=== PATIENT | female | born 1965 | race Caucasian/White ===

== ENCOUNTER 2021-09-08 21:17 | Emergency (ER) | payer BC, MEDICARE, MEDICAID, SELFPAY ==
[2021-09-08 21:28] VITALS: BP 124/93; PULSE 59; RESP 18; TEMP 36.6; BMI 18.0
--- NOTE | 2021-09-08 22:10 | ED.GENADULT ---
HPI - General Adult General Time Seen by Provider: 22:09 <Kamran Jarvis MD - Last Filed: 09/09/21 00:15> Date Seen: 09/08/21 <Kamran Jarvis MD - Last Filed: 09/09/21 00:15> Chief complaint: Syncope/Fainted <Kamran Jarvis MD - Last Filed: 09/09/21 00:15> Stated complaint: Fainting spells <Kamran Jarvis MD - Last Filed: 09/09/21 00:15> Time Seen by Provider: 09/08/21 21:44 <Kamran Jarvis MD - Last Filed: 09/09/21 00:15> Source: patient <Kamran Jarvis MD - Last Filed: 09/09/21 00:15> Mode of arrival: ambulatory <Kamran Jarvis MD - Last Filed: 09/09/21 00:15> Limitations: no limitations <Kamran Jarvis MD - Last Filed: 09/09/21 00:15> History of Present Illness HPI narrative: 48-year-old female with complex medical history of fibromuscular dysplasia, history of acute CVA and various arterial dissections, currently on blood thinners, who presents with multiple syncopal episodes in the last week or so. She describes pain in the back of her neck going to her head that is intermittent and then says she passes out. She has nausea without vomiting. She denies any chest pain or palpitations accompanying this although she does have recurrent chest pain for which she takes nitroglycerin. This is been chronic and stable. She denies abdominal pain, urinary symptoms. She denies numbness or tingling the arms or legs. Review of chart shows that she has a history of chronic benzodiazepine use concern for opioid misuse as well. <Kamran Jarvis MD - Last Filed: 09/09/21 00:15> Related Data Home medications: Home Medications Medication Instructions Recorded Confirmed apixaban 2.5 mg tablet (Eliquis) mg 09/08/21 apixaban 5 mg tablet (Eliquis) 5 mg 09/08/21 clonazepam 2 mg tablet mg 09/08/21 desvenlafaxine succinate 25 mg mg PO 09/08/21 tablet,extended release 24 hr ferrous sulfate 325 mg (65 mg mg 09/08/21 iron) tablet (FeroSul) nitroglycerin 0.4 mg sublingual mg 09/08/21 tablet omeprazole 40 mg capsule,delayed mg 09/08/21 release ondansetron 8 mg disintegrating mg 09/08/21 tablet oxycodone 5 mg tablet mg 09/08/21 oxycodone-acetaminophen 5 mg-325 tab 09/08/21 mg tablet paroxetine HCl 40 mg tablet mg PO 09/08/21 potassium chloride 10 mEq meq 09/08/21 capsule,extended release sennosides 8.6 mg-docusate sodium PO 09/08/21 50 mg tablet (Stimulant Laxative Plus) trazodone 50 mg tablet mg 09/08/21 <Kamran Jarvis MD - Last Filed: 09/09/21 00:15> Allergies/adverse reactions: Allergies Allergy/AdvReac Type Severity Reaction Status Date / Time Iodinated Contrast Media Allergy Intermediate Rash Verified 09/08/21 21:38 <Kamran Jarvis MD - Last Filed: 09/09/21 00:15> Review of Systems Status of ROS: Reports: 10 or more systems reviewed and unremarkable except as noted in History and below <Kamran Jarvis MD - Last Filed: 09/09/21 00:15> [facility] Medical History: Medical History (Updated 09/09/21 @ 00:04 by Kamran Jarvis MD) Cancer CVA (cerebral vascular accident) GERD (gastroesophageal reflux disease) Hyperlipidemia Hypertension <Kamran Jarvis MD - Last Filed: 09/09/21 00:15> Surgical History: Surgical History (Updated 09/08/21 @ 21:39 by Stacey Rojo RN) History of cholecystectomy <Kamran Jarvis MD - Last Filed: 09/09/21 00:15> Social History: Social History Smoking Status: Former smoker Do you use any of these nicotine containing products: None Second hand tobacco smoke exposure: No How often do you have a drink containing alcohol: never How often do you have six or more drinks on one occasion: Never AUDIT-C Alcohol total score: 0 Non-prescribed substance use: marijuana (any form) service: No <Kamran Jarvis MD - Last Filed: 09/09/21 00:15> Exam Const: Vital Signs, click to edit/add: Vital Signs - 24 hr 09/08/21 21:28 Temperature 97.8 F Pulse Rate [Pulse Oximeter] 59 L Respiratory Rate 18 Blood Pressure [Le ft Upper Arm] 124/93 H <Kamran Jarvis MD - Last Filed: 09/09/21 00:15> Vital Signs, click to edit/add: Vital Signs - 24 hr 09/08/21 21:28 Temperature 97.8 F Pulse Rate [Pulse Oximeter] 59 L Respiratory Rate 18 Blood Pressure [Le ft Upper Arm] 124/93 H <Wu Grossman MD - Last Filed: 09/09/21 03:17> Documenting provider has reviewed patient's vital signs: yes <Kamran Jarvis MD - Last Filed: 09/09/21 00:15> Common normals: no apparent distress, oriented x3, alert and well nourished <Kamran Jarvis MD - Last Filed: 09/09/21 00:15> HENMT: Common normals: normocephalic, head/scalp atraumatic, external ears normal and external nose normal <Kamran Jarvis MD - Last Filed: 09/09/21 00:15> Head and scalp: normocephalic and atraumatic <Kamran Jarvis MD - Last Filed: 09/09/21 00:15> Nose: external nose normal <Kamran Jarvis MD - Last Filed: 09/09/21 00:15> External ear: external ears normal <Kamran Jarvis MD - Last Filed: 09/09/21 00:15> Eye: Common normals: PERRL and conjunctivae normal <Kamran Jarvis MD - Last Filed: 09/09/21 00:15> Conjunctiva: conjunctiva(e) normal <Kamran Jarvis MD - Last Filed: 09/09/21 00:15> Pupil: PERRL <Kamran Jarvis MD - Last Filed: 09/09/21 00:15> Neck & C-Spine: Common normals: full ROM, no lymphadenopathy and supple <Kamran Jarvis MD - Last Filed: 09/09/21 00:15> Chest: Common normals: palpation of chest normal <MD Sejal Garcia Last Filed: 09/09/21 00:15> Resp: Common normals: normal respiratory effort and clear to auscultation bilaterally <MD Sejal Garcia Last Filed: 09/09/21 00:15> Auscultation: clear to auscultation bilaterally <MD Sejal Garcia Last Filed: 09/09/21 00:15> Cardio: Common normals: regular rate, regular rhythm and no murmurs <MD Sejal Garcia Last Filed: 09/09/21 00:15> Rate: regular rate <MD Sejal Garcia Last Filed: 09/09/21 00:15> Rhythm: regular rhythm <MD Sejal Garcia Last Filed: 09/09/21 00:15> GI: Common normals: Normal to inspection, nondistended, normoactive bowel sounds present, soft to palpation and non-tender <MD Sejal Garcia Last Filed: 09/09/21 00:15> Palpation: soft <MD Sejal Garcia Last Filed: 09/09/21 00:15> : Common normals: no CVA tenderness <MD Sejal Garcia Last Filed: 09/09/21 00:15> Bladder/kidney exam: no CVA tenderness <MD Sejal Garcia Last Filed: 09/09/21 00:15> Back & Pelvis: Common normals: no CVA tenderness and thoracic and lumbar spine normal to inspection <MD Sejal Garcia Last Filed: 09/09/21 00:15> Extremity: Common normals: normal to inspection, full ROM and no pedal edema <MD Sejal Garcia Last Filed: 09/09/21 00:15> Neuro: Common normals: oriented x3, CN's II-XII intact bilaterally and no focal motor deficits <MD Sejal Garcia Last Filed: 09/09/21 00:15> Sensorium/orientation: alert <MD eSjal Garcia Last Filed: 09/09/21 00:15> Psych: Common normals: mental status grossly normal <MD Sejal Garcia Last Filed: 09/09/21 00:15> Skin: Common normals: no rashes or lesions noted <Kamran Jarvis MD - Last Filed: 09/09/21 00:15> General skin exam: no rashes or lesions noted <Kamran Jarvis MD - Last Filed: 09/09/21 00:15> Course Reevaluation(s) Reevaluation #1: Patient remains finally stable in the emergency department other than borderline sinus bradycardia. Labs are reassuring including normal troponin, normal electrolytes. EKG does not demonstrate any acute ischemic changes. Patient is stable for discharge if head CT does not demonstrate any acute findings. <Kamran Jarvis MD - Last Filed: 09/09/21 00:15> Time: 23:16 <Kamran Jarvis MD - Last Filed: 09/09/21 00:15> Reevaluation #2: I reviewed patient's prior records from the [facility]. This shows that patient has been seen from [facility] on August 30 from where she she had unremarkable workup and left against medical advice after being offered admission. She was subsequently seen at [facility] emergency department on August 31 at which time she had cardiac evaluation as well as CT scan of the chest, abdomen, and pelvis again with negative evaluation and discharge home. On September 06 she presented to [facility] where she left after triaged. Again on September 06, she then presented to [facility] where she she again left after triage. Most recently, she was already seen today at [facility] Emergency [facility]. She had a full and extensive evaluation for syncope, including MRI/MRA of the brain and [place] all of which was negative and was discharged at 7:15 p.m., presenting to our emergency department at approximately 9:15 p.m. based on multiple recent negative evaluations for her symptoms as well as negative evaluation today, patient is stable for discharge. MRA/MRI none today demonstrated No aneurysm or stenosis of the major arteries. Patient will be discharged. <Kamran Jarvis MD - Last Filed: 09/09/21 00:15> Time: 23:25 <Kamran Jarvis MD - Last Filed: 09/09/21 00:15> Reevaluation #3: Rechecked patient. She has declined oral Percocet and says I am not appropriately treating her. She reports that if I do not give her pain medication, she will walk out into the road and be hit by car. She asked for the IV to be discontinued so that she can go walk in front of a car. She says she plans to walk home but we both know I will not make it and she plans to commit suicide by her report. IV will be discontinued and mental health assessment will be ordered. <Kamran Jarvis MD - Last Filed: 09/09/21 00:15> Time: 23:54 <Kamran Jarvis MD - Last Filed: 09/09/21 00:15> Vital Signs Vital signs: Initial Vital Signs Temperature 97.8 F 09/08/21 21:28 Temperature Source Temporal Artery Scan 09/08/21 21:28 Pulse Rate 59 L 09/08/21 21:28 Pulse Rhythm 09/08/21 21:28 Respiratory Rate 18 09/08/21 21:28 Blood Pressure 124/93 H 09/08/21 21:28 Blood Pressure Mean 103 09/08/21 21:28 Blood Pressure Position Sitting 09/08/21 21:28 Oxygen Delivery Method 09/08/21 21:28 Vital Signs Temperature 97.8 F 09/08/21 21:28 Pulse Rate 59 L 09/08/21 21:28 Respiratory Rate 18 09/08/21 21:28 Blood Pressure 124/93 H 09/08/21 21:28 Temperature 97.8 F 09/08/21 21:28 Pulse Rate 59 L 09/08/21 21:28 Respiratory Rate 18 09/08/21 21:28 Blood Pressure 124/93 H 09/08/21 21:28 <Kamran Jarvis MD - Last Filed: 09/09/21 00:15> Initial Vital Signs Temperature 97.8 F 09/08/21 21:28 Temperature Source Temporal Artery Scan 09/08/21 21:28 Pulse Rate 59 L 09/08/21 21:28 Pulse Rhythm 09/08/21 21:28 Respiratory Rate 18 09/08/21 21:28 Blood Pressure 124/93 H 09/08/21 21:28 Blood Pressure Mean 103 09/08/21 21:28 Blood Pressure Position Sitting 09/08/21 21:28 Oxygen Delivery Method 09/08/21 21:28 Vital Signs Temperature 97.8 F 09/08/21 21:28 Pulse Rate 59 L 09/08/21 21:28 Respiratory Rate 18 09/08/21 21:28 Blood Pressure 124/93 H 09/08/21 21:28 Temperature 97.8 F 09/08/21 21:28 Pulse Rate 59 L 09/08/21 21:28 Respiratory Rate 18 09/08/21 21:28 Blood Pressure 124/93 H 09/08/21 21:28 <Wu Grossman MD - Last Filed: 09/09/21 03:17> Medical Decision Making MDM Narrative Medical decision making narrative: Patient seen and examined, prior records are reviewed. Differential diagnosis includes but not limited to dehydration, orthostasis, dysrhythmia, anemia, electrolyte disturbance, intracranial pathology. Patient presents with numerous syncopal episodes over the last couple of weeks. No chest pain or palpitations preceding this. Medically complex patient, history of contrast allergy. Labs and CT scan ordered. Patient is mostly concerned about symptom control with her nausea. Zofran IV is ordered. <Kamran Jarvis MD - Last Filed: 09/09/21 00:15> Patient seen and examined, prior records are reviewed. Differential diagnosis includes but not limited to dehydration, orthostasis, dysrhythmia, anemia, electrolyte disturbance, intracranial pathology. Patient presents with numerous syncopal episodes over the last couple of weeks. No chest pain or palpitations preceding this. Medically complex patient, history of contrast allergy. Labs and CT scan ordered. Patient is mostly concerned about symptom control with her nausea. Zofran IV is ordered. 3:14 a.m. I spoke to the mental health livestock auctioneer she feels she is low risk, she definitely has some psychiatric issues, but has a crisis social service manager coming on Sunday. She also has a psychiatrist. And she is not currently suicidal. She says it was all a misunderstanding given the fact that she was discussing with the doctor over pain medications. She denies the fact that she wants to kill herself, but is frustrated by the fact that people do not want to give her pain medication. Liya the mental health livestock auctioneer says that she feels she is low risk, can be discharged to ambulatory follow-up but she has, and to return if worsening situation. She does recommend the safety contract I did give her another 4 mg of Zofran for nausea. Will discuss this with the patient. <Wu Grossman MD - Last Filed: 09/09/21 03:17> Medical Records Medical records reviewed: Yes I reviewed the patient's medical records <Kamran Jarvis MD - Last Filed: 09/09/21 00:15> Lab Data Lab results reviewed: Yes I reviewed the patient's lab results <Kamran Jarvis MD - Last Filed: 09/09/21 00:15> Labs: Lab Results 09/08/21 09/08/21 Range/Units 22:20 22:20 WBC 4.44 L (4.50-11.00) K/uL RBC 3.91 L (4.00-5.20) m/uL Hgb 12.1 (12.0-16.0) gm/dL Hct 36.4 (33.0-51.0) % MCV 93 (80-100) fL MCH 31 (26-34) pg MCHC 33 (32-36) gm/dL RDW Coeff of Mathew 14.5 (11.5-15.5) % Plt Count 178 (140-440) K/uL Neut % (Auto) 60.1 (42.0-72.0) % Lymph % (Auto) 31.5 (20-44) % Carlton % (Auto) 6.5 (0.0-11.0) % Eos % (Auto) 0.7 (0.0-7.0) % Baso % (Auto) 0.7 (0.0-3.0) % Neut # (Auto) 2.70 (1.7-7.0) K/uL Lymph # (Auto) 1.40 (0.90-2.90) K/uL Carlton # (Auto) 0.30 (0.00-0.90) K/UL Eos # (Auto) 0.00 (0.00-0.50) K/uL Baso # (Auto) 0.00 (0.00-0.30) K/uL Abs Immat Gran (auto) 0.02 (0.00-0.30) K/uL Sodium 136 (135-149) mmol/L Potassium 3.6 (3.6-5.1) mmol/L Chloride 104 (96-114) mmol/L Carbon Dioxide 28 (20-32) mmol/L BUN 8 (7-30) mg/dL Creatinine 0.8 (0.5-1.5) mg/dL Estimated Creat Clear 63.12 Glucose 94 (60-115) mg/dL Calcium 8.9 (8.4-10.6) mg/dL Total Bilirubin 0.6 (0.1-1.5) mg/dL Direct Bilirubin 0.3 (0.0-0.5) mg/dL AST 26 (12-35) U/L ALT 19 (4-35) U/L Alkaline Phosphatase 70 (40-150) U/L Troponin I < 0.01 L (0.01-0.04) ng/mL Total Protein 6.3 (6.0-8.3) g/dL Albumin 4.2 (3.3-5.0) g/dL Lipase 77 (23-300) U/L <Kamran Jarvis MD - Last Filed: 09/09/21 00:15> Lab Results 09/08/21 09/08/21 Range/Units 22:20 22:20 WBC 4.44 L (4.50-11.00) K/uL RBC 3.91 L (4.00-5.20) m/uL Hgb 12.1 (12.0-16.0) gm/dL Hct 36.4 (33.0-51.0) % MCV 93 (80-100) fL MCH 31 (26-34) pg MCHC 33 (32-36) gm/dL RDW Coeff of Mathew 14.5 (11.5-15.5) % Plt Count 178 (140-440) K/uL Neut % (Auto) 60.1 (42.0-72.0) % Lymph % (Auto) 31.5 (20-44) % Carlton % (Auto) 6.5 (0.0-11.0) % Eos % (Auto) 0.7 (0.0-7.0) % Baso % (Auto) 0.7 (0.0-3.0) % Neut # (Auto) 2.70 (1.7-7.0) K/uL Lymph # (Auto) 1.40 (0.90-2.90) K/uL Carlton # (Auto) 0.30 (0.00-0.90) K/UL Eos # (Auto) 0.00 (0.00-0.50) K/uL Baso # (Auto) 0.00 (0.00-0.30) K/uL Abs Immat Gran (auto) 0.02 (0.00-0.30) K/uL Sodium 136 (135-149) mmol/L Potassium 3.6 (3.6-5.1) mmol/L Chloride 104 (96-114) mmol/L Carbon Dioxide 28 (20-32) mmol/L BUN 8 (7-30) mg/dL Creatinine 0.8 (0.5-1.5) mg/dL Estimated Creat Clear 63.12 Glucose 94 (60-115) mg/dL Calcium 8.9 (8.4-10.6) mg/dL Total Bilirubin 0.6 (0.1-1.5) mg/dL Direct Bilirubin 0.3 (0.0-0.5) mg/dL AST 26 (12-35) U/L ALT 19 (4-35) U/L Alkaline Phosphatase 70 (40-150) U/L Troponin I < 0.01 L (0.01-0.04) ng/mL Total Protein 6.3 (6.0-8.3) g/dL Albumin 4.2 (3.3-5.0) g/dL Lipase 77 (23-300) U/L <Wu Grossman MD - Last Filed: 09/09/21 03:17> ECG Data Attestation: I personally reviewed and interpreted this ECG as follows: <Kamran Jarvis MD - Last Filed: 09/09/21 00:15> Prior ECG tracings: available for review <Kamran Jarvis MD - Last Filed: 09/09/21 00:15> Interpretation: Performed at 11:09 a.m. p.m. demonstrates sinus bradycardia rate 50, no acute ST elevations or depressions, normal intervals, normal axis, QTC 424, ME 166. No change from prior. <Kamran Jarvis MD - Last Filed: 09/09/21 00:15> Discharge Plan Discharge Clinical Impression: Syncope, Drug-seeking behavior, Chronic pain, Neck pain <Kamran Jarvis MD - Last Filed: 09/09/21 00:15> Patient Disposition: Home, Self-Care <Kamran Jarvis MD - Last Filed: 09/09/21 00:15> Condition: Stable <Kamran Jarvis MD - Last Filed: 09/09/21 00:15> Instructions: Syncope (ED) <Kamran Jarvis MD - Last Filed: 09/09/21 00:15> Additional Instructions: Follow-up with your regular doctor this week. Continue your current medications. <Kamran Jarvis MD - Last Filed: 09/09/21 00:15> Activity Level: No Restrictions <Kamran Jarvis MD - Last Filed: 09/09/21 00:15> No Restrictions <Wu Grossman MD - Last Filed: 09/09/21 03:17> Discharge Diet: Regular <Kamran Jarvis MD - Last Filed: 09/09/21 00:15> Regular <Wu Grossman MD - Last Filed: 09/09/21 03:17> Prescriptions: No Action Eliquis 5 mg tablet 5 mg 0RF Eliquis 2.5 mg tablet 0RF potassium chloride 10 mEq capsule, extended release 0RF trazodone 50 mg tablet 0RF sennosides-docusate sodium [Stimulant Laxative Plus] 8.6-50 mg tablet PO 0RF Label Comments: TAKE 1 TABLET BY MOUTH TWICE DAILY NEEDED FOR CONSTIPATION omeprazole 40 mg capsule,delayed release(DR/EC) 0RF ondansetron 8 mg tablet,disintegrating 0RF oxycodone-acetaminophen 5-325 mg tablet 0RF Label Comments: TAKE 1 TABLET BY MOUTH EVERY 6 HOURS NEEDED FOR PAIN. MAX ACETAMINOPHEN DOSE 4000MG PER 24 HOURS ferrous sulfate [FeroSul] 325 mg (65 mg iron) tablet 0RF clonazepam 2 mg tablet 0RF Label Comments: TAKE 1 TABLET BY MOUTH THREE TIMES DAILY NEEDED nitroglycerin 0.4 mg tablet, sublingual 0RF Label Comments: PLACE 1 TABLET UNDER THE TONGUE EVERY 5 MINUTES FOR 3 DOSES. CALL 911 IF SYMPTOMS PERSIST paroxetine HCl 40 mg tablet PO 0RF Label Comments: TAKE 1 TABLET BY MOUTH EVERY DAY oxycodone 5 mg tablet 0RF desvenlafaxine succinate 25 mg tablet extended release 24 hr PO 0RF Label Comments: TAKE 1 TABLET BY MOUTH EVERY DAY <Kamran Jarvis MD - Last Filed: 09/09/21 00:15> Stand Alone Forms: My[facility] Info Instructions <Kamran Jarvis MD - Last Filed: 09/09/21 00:15>
--- NOTE | 2021-09-08 22:14 | CRLHL7_ITS ---
For Patients: As a result of the Cures Act, medical imaging exams and procedure reports are released immediately into your electronic medical record. You may view this report before your referring provider. If you have questions, please contact your health care provider. INDICATION: Fainting spells, history of stroke.. TECHNIQUE: CT head without contrast. COMPARISON: August 16, 2019. FINDINGS: CSF spaces: Within normal limits for age. Brain parenchyma and extra-axial spaces: Stable encephalomalacia in the posterior parieto-occipital region, similar to the prior examination. The leung-white differentiation is otherwise within normal limits. No sign of mass, hemorrhage, or midline shift. No extra-axial fluid collection. Skull base and calvarium: The visualized paranasal sinuses and mastoid air cells demonstrate no acute or significant findings. The visualized orbits are grossly unremarkable. No skull fractures. IMPRESSION: No acute intracranial process identified. Stable encephalomalacia in the bilateral posterior parieto-occipital regions. Please note that all CT scans at this facility use dose modulation, iterative reconstruction, and/or weight-based dosing when appropriate to reduce radiation dose to as low as reasonably achievable. Dictated by Sally Hyatt MD @ 09/08/2021 11:20:36 PM (Electronically Signed)
[2021-09-08 22:39] LABS: Hematocrit 36.4 % (33.0-51.0); Hemoglobin* 12.1 gm/dL (12.0-16.0); Mean Corpuscular HGB Conc 33 gm/dL (32-36); Mean Corpuscular Hemoglobin 31 pg (26-34); Mean Corpuscular Volume 93 fL (80-100); Neutrophils Percent Auto 60.1 % (42.0-72.0); Platelet Count* 178 K/uL (140-440); RDW Coefficient of Variation % 14.5 % (11.5-15.5); Red Blood Count 3.91 m/uL (4.00-5.20); White Blood Count* 4.44 K/uL (4.50-11.00)
[2021-09-08 22:40] LABS: Basophils Percent Auto 0.7 % (0.0-3.0); Eosinophils Percent Auto 0.7 % (0.0-7.0); Immature Granulocytes Abs Auto 0.02 K/uL (0.00-0.30); Lymphocytes Percent Auto 31.5 % (20-44); Monocytes Percent Auto 6.5 % (0.0-11.0)
[2021-09-08] MEDS: ONDANSETRON 2 MG/ML inj 4 MG IVP (22:40)
[2021-09-08 22:42] LABS: Slide Review Reflex No
[2021-09-08 22:46] LABS: Albumin* 4.2 g/dL (3.3-5.0)
[2021-09-08 22:47] LABS: Chloride* 104 mmol/L (96-114); Potassium* 3.6 mmol/L (3.6-5.1); Sodium* 136 mmol/L (135-149)
[2021-09-08 22:49] LABS: Bilirubin Direct* 0.3 mg/dL (0.0-0.5); Bilirubin Total* 0.6 mg/dL (0.1-1.5); Carbon Dioxide* 28 mmol/L (20-32); Creatinine* 0.8 mg/dL (0.5-1.5); Est. Creatinine Clearance* 63.12; Estimated Glomerular Filt Rate 85.35
[2021-09-08 22:50] LABS: Alanine Aminotransferase* 19 U/L (4-35); Alkaline Phosphatase* 70 U/L (40-150); Aspartate Amino Transferase* 26 U/L (12-35); Blood Urea Nitrogen* 8 mg/dL (7-30); Calcium* 8.9 mg/dL (8.4-10.6); Glucose* 94 mg/dL (60-115); Lipase* 77 U/L (23-300); Total Protein* 6.3 g/dL (6.0-8.3)
[2021-09-08 23:09] LABS: Troponin I* < 0.01 ng/mL (0.01-0.04)
--- NOTE | 2021-09-09 00:29 | ED.NURSE ---
Pt moved to room 2 for mental health monitoring. Security updated as well.
[2021-09-09] MEDS: ONDANSETRON ODT 4 MG TAB PO (03:08)
[2021-09-09] MEDS: OxyCODONE/APAP 5-325 TABLET 1 TAB PO (03:29)
== END 2021-09-09 06:58 | disposition home or self-care (01) ==
LOC: ED 09-09 00:32
PROVIDERS: Family Medicine; Emergency Provider Family Medicine
DX: R55 Syncope and collapse (principal); M54.2 Cervicalgia; Z76.5 Malingerer [conscious simulation]
CPT/HCPCS: 36415; 70450; 80048; 80076; 83690; 84484; 85025; 93005; 96374; 99284; 99285; A9270; J2405

== ENCOUNTER 2021-10-12 17:07 | Emergency (ER) | payer BC, MEDICARE, MEDICAID, SELFPAY ==
[2021-10-12 17:23] VITALS: BP 125/89; PULSE 99; RESP 14; TEMP 36.8; O2SAT 99; BMI 18.6
--- NOTE | 2021-10-12 17:46 | CRLHL7_ITS ---
For Patients: As a result of the Century Cures Act, medical imaging exams and procedure reports are released immediately into your electronic medical record. You may view this report before your referring provider. If you have questions, please contact your health care provider. INDICATION: Abdominal pain. C diff positive. TECHNIQUE: CT abdomen and pelvis acquired with 56 mL Isovue 370 contrast. COMPARISON: CT abdomen/pelvis dated 11/02/2020. FINDINGS: Lower chest: Bibasilar dependent atelectasis. Stable 0.5 cm pulmonary nodule in the right lung base. Liver: No suspicious focal hepatic lesion. Gallbladder and bile ducts: Gallbladder is surgically absent. Prominence of the biliary ducts, likely secondary to postcholecystectomy state. Pancreas: Unremarkable. Spleen: Unremarkable. Adrenal glands: Unremarkable. Kidneys: Kidneys enhance symmetrically, without hydronephrosis. Left renal cyst and too small to characterize evidence left renal lesion. Retroperitoneum: No lymphadenopathy. Bowel and mesentery: Large fecal burden is present throughout the colon. No significant pericolonic inflammation is identified. Appendix is not definitively visualized. No significant ascites. No definite pneumoperitoneum. Bladder: Unremarkable for degree of distension. Reproductive organs: Unremarkable. Pelvic lymph nodes: No lymphadenopathy. Vessels: Mild atherosclerotic calcifications. Abdominal wall: No acute abdominal wall abnormality. Bones: Multilevel degenerative changes of the spine. No suspicious/aggressive focal osseous lesion. IMPRESSION: No significant pericolonic inflammation is identified. Large fecal burden is present throughout the colon. Please note that all CT scans at this facility use dose modulation, iterative reconstruction, and/or weight-based dosing when appropriate to reduce radiation dose to as low as reasonably achievable. Dictated by Juan Coffey MD @ 10/12/2021 9:33:30 PM (Electronically Signed)
--- NOTE | 2021-10-12 17:49 | ED.GENADULT ---
HPI - General Adult General Chief complaint: Diarrhea Stated complaint: Severe C-Diff Time Seen by Provider: 10/12/21 17:31 History of Present Illness HPI narrative: This 56-year-old female has been having diarrhea and abdominal pain complaints over the past 6 months and was recently diagnosed with Clostridium difficile. She started vancomycin 6 days ago and since then has been having constipation. She comes in feeling volume depletion and nausea symptoms. She does also report diffuse abdominal pain. She states that she measured a temperature of 100.1? F. her temperature upon arrival is 98.3. Related Data Home Medications Medication Instructions Recorded Confirmed apixaban 2.5 mg tablet (Eliquis) mg 09/08/21 apixaban 5 mg tablet (Eliquis) 5 mg 09/08/21 clonazepam 2 mg tablet mg 09/08/21 desvenlafaxine succinate 25 mg mg PO 09/08/21 tablet,extended release 24 hr ferrous sulfate 325 mg (65 mg mg 09/08/21 iron) tablet (FeroSul) nitroglycerin 0.4 mg sublingual mg 09/08/21 tablet omeprazole 40 mg capsule,delayed mg 09/08/21 release ondansetron 8 mg disintegrating mg 09/08/21 tablet oxycodone 5 mg tablet mg 09/08/21 oxycodone-acetaminophen 5 mg-325 tab 09/08/21 mg tablet paroxetine HCl 40 mg tablet mg PO 09/08/21 potassium chloride 10 mEq meq 09/08/21 capsule,extended release sennosides 8.6 mg-docusate sodium PO 09/08/21 50 mg tablet (Stimulant Laxative Plus) trazodone 50 mg tablet mg 09/08/21 Allergies Allergy/AdvReac Type Severity Reaction Status Date / Time Iodinated Contrast Media Allergy Intermediate Rash Verified 09/08/21 21:38 metoclopramide [From Reglan] AdvReac Verified 10/12/21 17:23 prochlorperazine AdvReac Verified 10/12/21 17:23 [From Compazine] Review of Systems Status of ROS: Reports: 10 or more systems reviewed and unremarkable except as noted in History and below Narrative: Constitutional: No weight gain or loss. Eyes: No discharge. No vision changes. HENT: No congestion, no sore throat, no ear pain. Cardiovascular: No chest pain, no palpitations. Respiratory: No shortness of breath, no wheezes, no cough. Gastrointestinal: Abdominal pain. No bowel movement or diarrhea for the past 4 5 days. Genitourinary: No dysuria, no hematuria. Musculoskeletal: Normal range of motion. Skin: No rashes, no pruritis. Neurological: No dizziness, weakness, sensory change, speech change. Endo/Heme/Allergies: No bruising or bleeding. No polydipsia. Pysch: no suicidality, no anxiety, no insomnia. All other systems reviewed and are negative. [facility] Medical History (Updated 10/12/21 @ 21:42 by Sanchez Oliver MD) Cancer CVA (cerebral vascular accident) GERD (gastroesophageal reflux disease) Hyperlipidemia Hypertension Surgical History (Updated 09/08/21 @ 21:39 by Stacey Rojo RN) History of cholecystectomy Social History Smoking Status: Former smoker Do you use any of these nicotine containing products: None Second hand tobacco smoke exposure: No How often do you have a drink containing alcohol: never How often do you have six or more drinks on one occasion: Never AUDIT-C Alcohol total score: 0 Non-prescribed substance use: marijuana (any form) service: No Exam Narrative: Exam Narrative: Constitutional: Well-developed, well-nourished. She appears to be in some distress. HEENT: Normocephalic, atraumatic. Neck: Normal range of motion. Nontender. Supple. Heart: Regular. No murmurs. Normal rate. Intact distal pulses. Lungs: Clear to auscultation. No chest discomfort. No wheezes, rhonchi, or rales. Abdomen: Normal bowel sounds. Diffuse tenderness.. No rebound tenderness. Genitalia: Deferred. Back: No midline tenderness. Normal range of motion. Extremities: Normal range of motion. No injury. Skin: Intact. No rash. Warm. No erythema or pallor. Neurologic: No altered sensation. No weakness. Alert and oriented. Psychiatric: No suicidality. No anxiety or depression. No insomnia. Nursing notes and vitals signs are reviewed. Const: Vital Signs, click to edit/add: Vital Signs - 24 hr 10/12/21 17:23 Temperature 98.3 F Pulse Rate [Right Pulse Oximeter] 99 Respiratory Rate 14 Blood Pressure [Ri ght Upper Arm] 125/89 Pulse Oximetry 99 Oxygen Delivery Me thod Room Air Course Vital Signs Vital signs: Initial Vital Signs Temperature 98.3 F 10/12/21 17:23 Temperature Source Temporal Artery Scan 10/12/21 17:23 Pulse Rate 99 10/12/21 17:23 Respiratory Rate 14 10/12/21 17:23 Blood Pressure 125/89 10/12/21 17:23 Blood Pressure Mean 101 10/12/21 17:23 Blood Pressure Position Sitting 10/12/21 17:23 Pulse Oximetry 99 10/12/21 17:23 Oxygen Delivery Method 10/12/21 17:23 Vital Signs Temperature 98.3 F 10/12/21 17:23 Pulse Rate 99 10/12/21 17:23 Respiratory Rate 14 10/12/21 17:23 Blood Pressure 125/89 10/12/21 17:23 Pulse Oximetry 99 10/12/21 17:23 Oxygen Delivery Method 10/12/21 17:23 Temperature 98.3 F 10/12/21 17:23 Pulse Rate 99 10/12/21 17:23 Respiratory Rate 14 10/12/21 17:23 Blood Pressure 125/89 10/12/21 17:23 Pulse Oximetry 99 10/12/21 17:23 Oxygen Delivery Method 10/12/21 17:23 Medical Decision Making MDM Narrative Medical decision making narrative: This patient comes in reporting abdominal pain and states that she has not had much for bowel movement over the past several days. She is taking vancomycin for a recent Clostridium difficile infection. This was started 6 days ago. She keeps complaining of pain. She did receive an IV dose of Toradol 30 mg. She states that this did not help her pain. She then also received 20 mg of ketamine and again this did not help. She is requesting narcotics frequently. She does have a history of drug-seeking behavior. She did not receive any narcotics as I stated we would look for findings on labs or imaging that would indicate a need for this as her pain is chronic. CT imaging shows a large fecal burden so the patient received a fleets enema. This occurred at the end of my shift. She should be able to return home to continue current plans. I did speak with the overnight physician regarding these matters who will be able to attend any further issues as may arise. Lab Data Labs: Lab Results 10/12/21 10/12/21 Range/Units 18:12 18:12 WBC 5.36 (4.50-11.00) K/uL RBC 3.95 L (4.00-5.20) m/uL Hgb 12.1 (12.0-16.0) gm/dL Hct 36.7 (33.0-51.0) % MCV 93 (80-100) fL MCH 31 (26-34) pg MCHC 33 (32-36) gm/dL RDW Coeff of Mathew 13.6 (11.5-15.5) % Plt Count 167 (140-440) K/uL Neut % (Auto) 75.3 H (42.0-72.0) % Lymph % (Auto) 17.9 L (20-44) % [place] % (Auto) 5.8 (0.0-11.0) % Eos % (Auto) 0.4 (0.0-7.0) % Baso % (Auto) 0.6 (0.0-3.0) % Neut # (Auto) 4.00 (1.7-7.0) K/uL Lymph # (Auto) 1.00 (0.90-2.90) K/uL [place] # (Auto) 0.30 (0.00-0.90) K/UL Eos # (Auto) 0.02 (0.00-0.50) K/uL Baso # (Auto) 0.03 (0.00-0.30) K/uL Abs Immat Gran (auto) 0.00 (0.00-0.30) K/uL Sodium 137 (135-149) mmol/L Potassium 3.8 (3.6-5.1) mmol/L Chloride 104 (96-114) mmol/L Carbon Dioxide 27 (20-32) mmol/L BUN 9 (7-30) mg/dL Creatinine 0.8 (0.5-1.5) mg/dL Estimated Creat Clear 63.12 Estimated GFR 85 ml/min Glucose 89 (60-115) mg/dL Calcium 8.9 (8.4-10.6) mg/dL Imaging Data CT scan - abdomen: Radiologist's impression: No significant pericolonic inflammation is identified. Large fecal burden is present throughout the colon. Discharge Plan Discharge Clinical Impression: Clostridium difficile infection, Constipation Condition: Stable Instructions: Constipation (ED) Prescriptions: No Action Eliquis 5 mg tablet 5 mg Eliquis 2.5 mg tablet potassium chloride 10 mEq capsule, extended release trazodone 50 mg tablet sennosides-docusate sodium [Stimulant Laxative Plus] 8.6-50 mg tablet PO Label Comments: TAKE 1 TABLET BY MOUTH TWICE DAILY NEEDED FOR CONSTIPATION omeprazole 40 mg capsule,delayed release(DR/EC) ondansetron 8 mg tablet,disintegrating oxycodone-acetaminophen 5-325 mg tablet Label Comments: TAKE 1 TABLET BY MOUTH EVERY 6 HOURS NEEDED FOR PAIN. MAX ACETAMINOPHEN DOSE 4000MG PER 24 HOURS ferrous sulfate [FeroSul] 325 mg (65 mg iron) tablet clonazepam 2 mg tablet Label Comments: TAKE 1 TABLET BY MOUTH THREE TIMES DAILY NEEDED nitroglycerin 0.4 mg tablet, sublingual Label Comments: PLACE 1 TABLET UNDER THE TONGUE EVERY 5 MINUTES FOR 3 DOSES. CALL 911 IF SYMPTOMS PERSIST paroxetine HCl 40 mg tablet PO Label Comments: TAKE 1 TABLET BY MOUTH EVERY DAY oxycodone 5 mg tablet desvenlafaxine succinate 25 mg tablet extended release 24 hr PO Label Comments: TAKE 1 TABLET BY MOUTH EVERY DAY Follow Up/Referrals: Provider,Not a Local [Primary Care Provider] - Stand Alone Forms: [facility] Info Instructions
[2021-10-12] MEDS: ONDANSETRON 2 MG/ML inj 4 MG IVP ×2 (18:14→19:42)
[2021-10-12] MEDS: KETOROLAC 30 MG/ML inj IVP (18:14)
[2021-10-12] MEDS: 0.9 % SODIUM CHLORIDE 1000 ml 1,000 ML IV (18:15)
[2021-10-12 18:30] LABS: Basophils Absolute Auto 0.03 K/uL (0.00-0.30); Basophils Percent Auto 0.6 % (0.0-3.0); Eosinophils Absolute Auto 0.02 K/uL (0.00-0.50); Eosinophils Percent Auto 0.4 % (0.0-7.0); Hematocrit 36.7 % (33.0-51.0); Hemoglobin* 12.1 gm/dL (12.0-16.0); Lymphocytes Percent Auto 17.9 % (20-44); Mean Corpuscular HGB Conc 33 gm/dL (32-36); Mean Corpuscular Hemoglobin 31 pg (26-34); Mean Corpuscular Volume 93 fL (80-100); Monocytes Percent Auto 5.8 % (0.0-11.0); Neutrophils Percent Auto 75.3 % (42.0-72.0); Platelet Count* 167 K/uL (140-440); RDW Coefficient of Variation % 13.6 % (11.5-15.5); Red Blood Count 3.95 m/uL (4.00-5.20); White Blood Count* 5.36 K/uL (4.50-11.00)
[2021-10-12 18:33] LABS: Slide Review Reflex No
[2021-10-12] MEDS: HYDROCORTISONE SOD SUCCINATE 50 MG/ML inj 200 MG IVP (18:40)
[2021-10-12] MEDS: diphenhydrAMINE 50 MG/ML inj IVP (18:40)
[2021-10-12 18:43] LABS: Chloride* 104 mmol/L (96-114); Potassium* 3.8 mmol/L (3.6-5.1); Sodium* 137 mmol/L (135-149)
[2021-10-12 18:46] LABS: Blood Urea Nitrogen* 9 mg/dL (7-30); Carbon Dioxide* 27 mmol/L (20-32); Creatinine* 0.8 mg/dL (0.5-1.5); Est. Creatinine Clearance* 63.12; Estimated Glomerular Filt Rate 85 ml/min; Glucose* 89 mg/dL (60-115)
[2021-10-12 18:47] LABS: Calcium* 8.9 mg/dL (8.4-10.6)
[2021-10-12 19:00] VITALS: BP 123/76; PULSE 87; RESP 16; O2SAT 97
[2021-10-12] MEDS: KETAMINE HCL 20 MG in 0.9 % SODIUM CHLORIDE 100 ml 100 ML 300.6 MG IVPB (19:43)
[2021-10-12 20:00] VITALS: BP 118/82; PULSE 95; RESP 18; O2SAT 99
[2021-10-12 21:00] VITALS: BP 126/84; PULSE 76; RESP 14; O2SAT 98
--- NOTE | 2021-10-12 21:44 | ED.NURSE ---
Report given to FRANCISCA Cruz.
--- NOTE | 2021-10-12 21:53 | PC.NURSE ---
Fleet enema given at 2150.
[2021-10-12 22:00] VITALS: BP 122/75; PULSE 99; RESP 17; O2SAT 98
[2021-10-12 23:00] VITALS: BP 121/80; PULSE 84; RESP 16; O2SAT 98
[2021-10-13] VITALS: BP 117/68; PULSE 83; RESP 13; O2SAT 99
== END 2021-10-13 00:26 | disposition home or self-care (01) ==
PROVIDERS: Emergency Provider Emergency Medicine Emergency Medical Services
DX: A04.72 Enterocolitis due to Clostridium difficile, not specified as recurrent (principal); K59.00 Constipation, unspecified
CPT/HCPCS: 36415; 74177; 80048; 81001; 85025; 96365; 96375; 96376; 99284; 99285; J1200; J1720; J1885; J2405; J3490; J7030; Q9967

== ENCOUNTER 2021-11-13 01:40 | Emergency (ER) | payer BC, MEDICARE, MEDICAID, SELFPAY ==
[2021-11-13 01:40] VITALS: O2SAT 99
[2021-11-13] MEDS: diphenhydrAMINE 50 MG/ML inj 25 MG IVP (01:48)
[2021-11-13] MEDS: LORazepam 2 MG/ML inj 1 MG IVP (01:50)
[2021-11-13] MEDS: ONDANSETRON 2 MG/ML inj 4 MG IVP (02:30)
--- NOTE | 2021-11-13 02:39 | CT_ITS ---
Patient: RAJENDRA ESPINOZA Facility:?[facility] Patient ID:?[id number] Site Patient ID:?[id number] Site :?[id number] Study:?CT-Chest/Abd/Pelvis PE PROTOCOL W/95CC ISOVUE 370-11/13/2021 3:14:53 AM Ordering Physician:JOS Final Report: INDICATION: Chest pain, abdominal pain TECHNIQUE: CT chest was performed with pulmonary angiographic technique. Subsequently, CT abdomen and pelvis with i.v. contrast during the venous phase. Coronal and sagittal reformats were obtained. CONTRAST: 95 mL Isovue 370 COMPARISON: 10/12/2021 FINDINGS: CHEST: Cardiovascular: The heart has an unremarkable appearance and size. No CT identified pulmonary emboli are seen. The pulmonary arteries are unremarkable in appearance. Ectasia of the ascending aorta is noted measuring 3.7 cm in maximal short axis diameter. Mediastinum: No mass or adenopathy seen. Lung: Both lungs are unremarkable in appearance. Pleura and pericardium: No sign of pleural effusion seen. No significant pericardial effusion is present. Chest wall and axilla: No mass or adenopathy seen. Bone: Unremarkable for age. No acute osseous injuries seen. ABDOMEN/PELVIS: Liver: Unremarkable. Spleen: Unremarkable. Pancreas: Unremarkable. Gallbladder: Previous cholecystectomy noted with no significant intra- or extrahepatic biliary ductal dilatation seen. Previous cholecystectomy noted without significant intra- or extrahepatic biliary ductal dilatation seen. Kidney: There is a simple cyst in the lower pole of the left kidney measuring 1.7 cm. Adrenal: Unremarkable. Bowel: There is a sac-like cluster of decompressed small bowel loops present in the posterior pelvis with engorgement of the Vasa recta. The appendix is not identified. Vascular: See above. Lymph: Unremarkable. Peritoneum: Unremarkable. No pneumoperitoneum is seen. No significant ascites is noted. Pelvis: Unremarkable. Soft tissue: Unremarkable. Bone: Unremarkable for age. No acute osseous injuries seen. IMPRESSION: 1. No CT evidence of pulmonary emboli. 2. There is a sac-like cluster of decompressed small bowel loops present in the posterior pelvis with engorgement of the Vasa recta. The possibility of a nonobstructing internal hernia should be considered. Dictated by Elijah Bustamante MD @ 11/13/2021 3:36:00 AM Please note that all CT scans at this facility use dose modulation, iterative reconstruction, and/or weight-based dosing when appropriate to reduce radiation dose to as low as reasonably achievable. Dictated by: Elijah Bustamante MD @ 11/13/2021 03:36:18 Signed by:Susan Bustamante MD @11/13/2021 3:36:18 AM (Electronic Signature)
--- NOTE | 2021-11-13 03:45 | ED_ITS ---
HPI - General Adult History of Present Illness HPI narrative: Pt is a 56 year old woman with a complex medical history. She presents after calling [facility] from the [facility] ER where she went via ambulance for acute abdominal pain. Pt actually presents with an IV in her arm which was not removed before she left AMA from [facility]. Pt states she is having terrible abd pain for the past 4 hours. The pain is severe and midline. No radiation, nausea vomiting fever chills. 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 Pt demands pain meds GRUPO. Pt has had extensive workup previously. She arrives during a [facility] downtime making assessment diffucult. Pt describes no dysuria. Related Data Home Medications Medication Instructions Recorded Confirmed apixaban 2.5 mg tablet (Eliquis) mg 09/08/21 apixaban 5 mg tablet (Eliquis) 5 mg 09/08/21 clonazepam 2 mg tablet mg 09/08/21 desvenlafaxine succinate 25 mg mg PO 09/08/21 tablet,extended release 24 hr ferrous sulfate 325 mg (65 mg mg 09/08/21 iron) tablet (FeroSul) nitroglycerin 0.4 mg sublingual mg 09/08/21 tablet omeprazole 40 mg capsule,delayed mg 09/08/21 release ondansetron 8 mg disintegrating mg 09/08/21 tablet oxycodone 5 mg tablet mg 09/08/21 oxycodone-acetaminophen 5 mg-325 tab 09/08/21 mg tablet paroxetine HCl 40 mg tablet mg PO 09/08/21 potassium chloride 10 mEq meq 09/08/21 capsule,extended release sennosides 8.6 mg-docusate sodium PO 09/08/21 50 mg tablet (Stimulant Laxative Plus) trazodone 50 mg tablet mg 09/08/21 Allergies Allergy/AdvReac Type Severity Reaction Status Date / Time Iodinated Contrast Media Allergy Intermediate Rash Verified 09/08/21 21:38 metoclopramide [From Reglan] AdvReac Verified 10/12/21 17:23 prochlorperazine AdvReac Verified 10/12/21 17:23 [From Compazine] Review of Systems Status of ROS: Reports: 10 or more systems reviewed and unremarkable except as noted in History and below [facility] Medical History (Updated 11/13/21 @ 03:58 by Eric Nicole MD) Anxiety Cancer Chronic abdominal pain Colitis Constipation CVA (cerebral vascular accident) GERD (gastroesophageal reflux disease) Hyperlipidemia Hypertension Pancreatic cyst Surgical History History of cholecystectomy Social History Smoking Status: Former smoker Do you use any of these nicotine containing products: None Second hand tobacco smoke exposure: No How often do you have a drink containing alcohol: never How often do you have six or more drinks on one occasion: Never AUDIT-C Alcohol total score: 0 Non-prescribed substance use: marijuana (any form) service: No Exam Narrative: Exam Narrative: EXAM GENERAL: Patient appears very emotional and thrashing about EYES: No scleral icterus. THYROID: no thyroid nodules or thyromegaly. LYMPH: No supraclavicular or cervical lymphadenopathy. SKIN: Visible skin seen during exam normal or with benign process only. EXT: No dependent lower extremity pedal edema. HEART: Regular rate and rhythm with no murmurs, rubs, or gallops. LUNGS: Clear to auscultation bilaterally with no crackles or wheezes. ABD: Soft, non tender, non distended. PSYCH: Patient appears extremely anxious Follow-up exam after evaluation shows a normal exam with a much calmer patient. Abdomen remained soft. Course Course Hospital Course: CT Abd and Pelvis ordered as well as UA, CBC, BMP, Amylase. Pt treated with Benadryl IV 25 mg and Ativan 1 mg Reevaluation(s) Reevaluation #1: Feeling much better. Labs available reviewed. CT Chest, Abd and Pelvis unremarkable with exeption of a cluster of decompressed small bowel loops raising the possibility of a NONOBSTRUCTING internal hernia. Outpt follow up recommended Medical Decision Making MDM Narrative Medical decision making narrative: Pt presented after leaving a neighboring hospical via [employer] with an IV in place. [employer] down during evaluation. Pt had a pulse of 65 while thrashing around with abd pain. Electrolytes and Amylase normal. Possible nonobstructing internal hernia noted on CT with outpt evaluation recommended. Pt now feeling better but would still like some pain meds. UA still pending. Differential Diagnosis Differential Diagnosis: AAA, Thorasic Aneurysm rupture, acute gi process, UTI, Kidney Stone Discharge Plan Discharge Clinical Impression: Abdominal pain Patient Disposition: Home, Self-Care Condition: Improved Instructions: Abdominal Pain (ED) Additional Instructions: Follow up with General Surgery to discuss possibility of Internal Hernia Continue current medications Follow up with PCP as well Activity Level: Activity as Tolerated Discharge Diet: Regular Prescriptions: No Action Eliquis 5 mg tablet 5 mg Eliquis 2.5 mg tablet potassium chloride 10 mEq capsule, extended release trazodone 50 mg tablet sennosides-docusate sodium [Stimulant Laxative Plus] 8.6-50 mg tablet PO Label Comments: TAKE 1 TABLET BY MOUTH TWICE DAILY NEEDED FOR CONSTIPATION omeprazole 40 mg capsule,delayed release(DR/EC) ondansetron 8 mg tablet,disintegrating oxycodone-acetaminophen 5-325 mg tablet Label Comments: TAKE 1 TABLET BY MOUTH EVERY 6 HOURS NEEDED FOR PAIN. MAX ACETAMINOPHEN DOSE 4000MG PER 24 HOURS ferrous sulfate [FeroSul] 325 mg (65 mg iron) tablet clonazepam 2 mg tablet Label Comments: TAKE 1 TABLET BY MOUTH THREE TIMES DAILY NEEDED nitroglycerin 0.4 mg tablet, sublingual Label Comments: PLACE 1 TABLET UNDER THE TONGUE EVERY 5 MINUTES FOR 3 DOSES. CALL 911 IF SYMPTOMS PERSIST paroxetine HCl 40 mg tablet PO Label Comments: TAKE 1 TABLET BY MOUTH EVERY DAY oxycodone 5 mg tablet desvenlafaxine succinate 25 mg tablet extended release 24 hr PO Label Comments: TAKE 1 TABLET BY MOUTH EVERY DAY Follow Up/Referrals: Provider,Not a Local [Primary Care Provider] - Stand Alone Forms: [employer] Info Instructions
[2021-11-13 03:49] VITALS: BP 127/83; PULSE 73; RESP 18; TEMP 36.4; O2SAT 99; BMI 18.8
[2021-11-13 04:08] LABS: Chloride* 103 mmol/L (96-114); Potassium* 3.3 mmol/L (3.6-5.1); Sodium* 136 mmol/L (135-149)
[2021-11-13 04:09] LABS: Blood Urea Nitrogen* 8 mg/dL (7-30); Carbon Dioxide* 27 mmol/L (20-32); Creatinine* 0.8 mg/dL (0.5-1.5); Est. Creatinine Clearance* 65.87; Estimated Glomerular Filt Rate 85 ml/min
[2021-11-13 04:10] LABS: Amylase* 74 U/L (18-89); Calcium* 9.5 mg/dL (8.4-10.6); Glucose* 93 mg/dL (60-115); Troponin I* < 0.01 ng/mL (0.01-0.04)
[2021-11-13 04:15] LABS: Appearance Urine Clear (Clear); Bilirubin Urine Negative (Negative); Color Urine Yellow (Yellow); Glucose Urine Negative (Negative); Ketones Urine 3+ (Negative); Specific Gravity Urine 1.015 (1.000-1.030)
[2021-11-13 04:16] LABS: Blood Urine Trace-intact (Negative); Leukocyte Esterase Urine Negative (Negative); Nitrite Urine Negative (Negative); Protein Urine Negative (Negative); RBC Urine 0-2 (0-2); Urobilinogen Urine 0.2 (0.2-1.0); WBC Urine 0-2 (0-5)
[2021-11-13 04:21] LABS: Basophils Absolute Auto 0.04 K/uL (0.00-0.30); Basophils Percent Auto 0.7 % (0.0-3.0); Eosinophils Absolute Auto 0.02 K/uL (0.00-0.50); Eosinophils Percent Auto 0.4 % (0.0-7.0); Hematocrit 37.2 % (33.0-51.0); Hemoglobin* 12.5 gm/dL (12.0-16.0); Immature Granulocytes Abs Auto 0.01 K/uL (0.00-0.30); Lymphocytes Absolute Auto 1.47 K/uL (0.90-2.90); Lymphocytes Percent Auto 26.9 % (20-44); Mean Corpuscular HGB Conc 34 gm/dL (32-36); Mean Corpuscular Hemoglobin 31 pg (26-34); Mean Corpuscular Volume 91 fL (80-100); Monocytes Percent Auto 7.5 % (0.0-11.0); Neutrophils Absolute Auto 3.52 K/uL (1.7-7.0); Neutrophils Percent Auto 64.3 % (42.0-72.0); Platelet Count* 180 K/uL (140-440); RDW Coefficient of Variation % 13.2 % (11.5-15.5); Red Blood Count 4.09 m/uL (4.00-5.20); White Blood Count* 5.47 K/uL (4.50-11.00)
[2021-11-13 04:22] LABS: Slide Review Reflex No
[2021-11-13 06:27] VITALS: BP 115/75; PULSE 78; RESP 18; TEMP 36.7; O2SAT 99
== END 2021-11-13 06:15 | disposition home or self-care (01) ==
PROVIDERS: Emergency Provider Internal Medicine
DX: R10.9 Unspecified abdominal pain (principal)
CPT/HCPCS: 36415; 71260; 74177; 80048; 81003; 81015; 82150; 84484; 85025; 93005; 94761; 96374; 96375; 99284; J1200; J2060; J2405; Q9967

== ENCOUNTER 2021-12-04 18:29 | Emergency (ER) | payer MEDICARE, MEDICAID, SELFPAY ==
[2021-12-04 18:38] VITALS: BP 130/76; PULSE 82; RESP 14; TEMP 37.6; O2SAT 95; BMI 17.2
--- NOTE | 2021-12-04 18:55 | ED.NURSE ---
Patient came out from room and stating she was leaving. She stated displeasure with MD exam and requested to report treatment. Patient agreed to sign AMA form, IV was removed and cards provided to patient for patient advocate.
--- NOTE | 2021-12-04 19:14 | ED_ITS ---
HPI - General Adult General Date Seen: 12/04/21 Chief complaint: Abdominal Pain Stated complaint: Abdominal Pain Time Seen by Provider: 12/04/21 18:32 Source: patient History of Present Illness HPI narrative: Patient is a 56 year old medically complex woman who arrives via EMS with a stated complaint of abdominal pain. Apparently she had been at [facility] earlier today for evaluation of these symptoms also by EMS, left without being seen, and then had gone to [facility] to try and fill a prescription for narcotics that she had. She was told that she could not fill the prescription, and then called EMS saying that she had severe abdominal pain. She received 100 mcg of fentanyl en route to the hospital. She was noted to have normal vital signs by paramedics, and they remained normal here. She does have a very complicated medical history including multiple dissections. She is maintained on anticoagulation. She has been seen here a couple of times in the past couple of months, and review of those records and then review of [facility] records show multiple visits to [facility] as well as [facility] . In talking with her, she says that she had gone to [facility] today by ambulance, but they made her wait in triage. She said that she did not want to wait because she was having a lot of pain, which is why she left. When she found out that she could not fill her pain medication prescription, she called 911 again. She does note that she has had abdominal pain for a very long time, but says that today was severe. She says that she feels like she has had another dissection, but says ?not the aorta, something else?. She has not had any vomiting or diarrhea. No fevers. No chest pain. No syncope. I tried to clarify more recent medical history with her. It is a little difficult to piece together. She had an exploratory laparotomy in the middle of November, which according to her records was through [facility], but she says it was at [facility]. I believe this was simply to see if they could find a source for her abdominal pain, and it seems to have been unremarkable. She does have another visit to [facility] on December 01 at which time she had a CT dissection protocol which was presumably unremarkable, as she was discharged home. Related Data Home Medications Medication Instructions Recorded Confirmed apixaban 5 mg tablet (Eliquis) 5 mg PO BID 09/08/21 11/13/21 clonazepam 2 mg tablet 2 mg PO TID PRN 09/08/21 11/13/21 desvenlafaxine succinate 25 mg 25 mg PO Q24H 09/08/21 11/13/21 tablet,extended release 24 hr nitroglycerin 0.4 mg sublingual 0.4 mg sublingual Q5M 09/08/21 11/13/21 tablet omeprazole 40 mg capsule,delayed 40 mg PO DAILY 09/08/21 11/13/21 release paroxetine HCl 40 mg tablet 40 mg PO HS 09/08/21 11/13/21 sennosides 8.6 mg-docusate sodium 1 tab-cap PO BID PRN 09/08/21 11/13/21 50 mg tablet (Stimulant Laxative Plus) acetaminophen 500 mg tablet 1,000 mg PO TID PRN 11/13/21 11/13/21 (Acetaminophen Extra Strength) albuterol sulfate 90 mcg/actuation 1 - 2 puff inhalation Q6H PRN 11/13/21 11/13/21 aerosol inhaler amlodipine 2.5 mg tablet 2.5 mg PO DAILY 11/13/21 11/13/21 atorvastatin 10 mg tablet 10 mg PO HS 11/13/21 11/13/21 dextroamphetamine-amphetamine ER 20 mg PO DAILY 11/13/21 11/13/21 20 mg 24hr capsule,extend release (Adderall XR) hydrocortisone 2.5 % topical cream 1 applic MD Q12H PRN 11/13/21 11/13/21 with perineal applicator hydromorphone 2 mg tablet 2 mg PO Q4H 11/13/21 11/13/21 (Dilaudid) lactulose 10 gram/15 mL oral 10 g PO DAILY PRN 11/13/21 11/13/21 solution lidocaine 4 % topical patch 1 patch topical DAILY 11/13/21 11/13/21 ondansetron 4 mg disintegrating 4 mg PO Q6H PRN 11/13/21 11/13/21 tablet pediatric multivitamin no.29 2 tab PO DAILY 11/13/21 11/13/21 (Gummies Girls' Multivitamins chewable tablet) phenylephrine 0.25 %-hard fat 88.7 1 supp MD TID 11/13/21 11/13/21 % rectal suppository (Hemorrhoidal (phenylephrine-hard fat)) trazodone 100 mg tablet 100 mg PO HS 11/13/21 11/13/21 Allergies Allergy/AdvReac Type Severity Reaction Status Date / Time isosorbide Allergy Severe Throat Verified 11/13/21 04:36 swelling/closng fentanyl Allergy Intermediate Hallucinati Verified 11/13/21 04:36 ons gadobutrol Allergy Intermediate Wheezing Verified 11/13/21 04:36 ibuprofen Allergy Intermediate Dizziness Verified 11/13/21 04:36 Iodinated Contrast Media Allergy Intermediate Rash Verified 11/13/21 04:36 iodixanol Allergy Intermediate Wheezing Verified 11/13/21 04:36 metrizamide Allergy Intermediate Hallucinati Verified 11/13/21 04:36 ng promethazine Allergy Intermediate Hallucinati Verified 11/13/21 04:36 ng meclizine Allergy Mild Headache Verified 11/13/21 04:36 morphine AdvReac Intermediate Nausea/Vomi Verified 11/13/21 04:36 ting methocarbamol [From Robaxin] AdvReac Mild Nausea Verified 11/13/21 04:36 metoclopramide [From Reglan] AdvReac Verified 11/13/21 04:36 prochlorperazine AdvReac Verified 11/13/21 04:36 [From Compazine] Peppermint Oil Allergy Severe Shortness Uncoded 11/13/21 04:36 of Breath Review of Systems Status of ROS: Reports: other Narrative: Negative aside from those in the [facility] PFSH PFS Medical History Alcohol use Altered mental status Anxiety C. difficile colitis Cancer Celiac artery dissection Cerebral arterial aneurysm Cervical spondylosis Chronic abdominal pain Chronic pain disorder Colitis Constipation Controlled substance agreement signed Conversion disorder COVID-19 CVA (cerebral vascular accident) Degeneration of lumbar or lumbosacral intervertebral disc Depression Dissection of splenic artery Fibromyalgia GERD (gastroesophageal reflux disease) Hemorrhoids History of coronary angiogram History of CVA (cerebrovascular accident) Hyperlipidemia Hypertension Iliac aneurysm Legal blindness Lumbar radiculopathy Belia-Goetz tear Migraine Opiate dependence Osteoarthritis of lumbar spine Pancreas cyst Pancreatic cyst Panic attack Paroxysmal atrial fibrillation Precordial pain Secondary hypertension Stroke with cerebral ischemia Syncope Tear of meniscus of left knee Thyroid nodule TIA (transient ischemic attack) Vasomotor instability Vertebral artery dissection Vision changes Vitamin D deficiency Surgical History History of arthroscopy of left knee History of cholecystectomy History of ERCP History of laparoscopic cholecystectomy History of removal of ovarian cyst Social History Smoking Status: Former smoker Do you use any of these nicotine containing products: None Second hand tobacco smoke exposure: No How often do you have a drink containing alcohol: never How often do you have six or more drinks on one occasion: Never AUDIT-C Alcohol total score: 0 Non-prescribed substance use: marijuana (any form) service: No Exam Narrative: Exam Narrative: Vital signs reviewed In general, a gaunt, otherwise comfortable appearing woman. Head: Normocephalic, atraumatic Neck: Supple. Abdomen, flat and soft, nontender. Extremities: Pulses intact. No edema. Skin: Warm and dry. Neurologic: Alert, conversant, moves all extremities. Affect: Labile. Const: Vital Signs, click to edit/add: Vital Signs - 24 hr 12/04/21 18:38 Temperature 99.7 F H Pulse Rate [Pulse Oximeter] 82 Respiratory Rate 14 Blood Pressure [Ri ght Upper Arm] 130/76 Pulse Oximetry 95 Oxygen Delivery Me thod Room Air Documenting provider has reviewed patient's vital signs: yes Course Course Hospital Course: In the course of getting her medical history, her visits to various other hospitals and complex medical history came up. I did discuss with her that because of how significant her medical history is, I think she is at a disadvantage when she goes to multiple different hospitals. Is difficult to know exactly what has happened and when at other facilities because of difficulty in reviewing those records. I feel certain that she has had many many CT scans, but I do not have access to any of those records and so I am not entirely certain what has been done and how recently. She said that she did try and go to [facility] today but they would not see her, but on further clarification it simply that they would not see her on immediate arrival by EMS, but instead asked that she wait in triage. She was not willing to wait. Ultimately, she became very angry with me at the suggestion that she should 1. Be asked to wait in triage when she has pain and 2. Choose one hospital to go to. She initially told me that her primary care was at [place], but then she told me she has someone in [place]. She says that no one is able to manage her because no one can figure out what is wrong with her. Ultimately, she said that she just wanted to leave because it was clear that I was not going to be able to figure out what was wrong with her either. She said ?you can go as she gathered up her things. I did offer to do repeat imaging to look for dissection. I do think aortic dissection is relatively unlikely given the absence of hypertension and the chronic nature of her abdominal pain, but given her history told her we could certainly do another CT scan. She repeated ?I said you can go?. She signed out AMA shortly thereafter. Vital Signs Vital signs: Initial Vital Signs Temperature 99.7 F H 12/04/21 18:38 Temperature Source Temporal Artery Scan 12/04/21 18:38 Pulse Rate 82 12/04/21 18:38 Respiratory Rate 14 12/04/21 18:38 Blood Pressure 130/76 12/04/21 18:38 Blood Pressure Mean 94 12/04/21 18:38 Pulse Oximetry 95 12/04/21 18:38 Oxygen Delivery Method 12/04/21 18:38 Vital Signs Temperature 99.7 F H 12/04/21 18:38 Pulse Rate 82 12/04/21 18:38 Respiratory Rate 14 12/04/21 18:38 Blood Pressure 130/76 12/04/21 18:38 Pulse Oximetry 95 12/04/21 18:38 Oxygen Delivery Method 12/04/21 18:38 Temperature 99.7 F H 12/04/21 18:38 Pulse Rate 82 12/04/21 18:38 Respiratory Rate 14 12/04/21 18:38 Blood Pressure 130/76 12/04/21 18:38 Pulse Oximetry 95 12/04/21 18:38 Oxygen Delivery Method 12/04/21 18:38 Discharge Plan Discharge Clinical Impression: Chronic abdominal pain Patient Disposition: Left Against Medical Advice Prescriptions: No Action Eliquis 5 mg tablet 5 mg PO BID sennosides-docusate sodium [Stimulant Laxative Plus] 8.6-50 mg tablet 1 tab-cap PO BID PRN Label Comments: TAKE 1 TABLET BY MOUTH TWICE DAILY NEEDED FOR CONSTIPATION omeprazole 40 mg capsule,delayed release(DR/EC) 40 mg PO DAILY clonazepam 2 mg tablet 2 mg PO TID PRN Label Comments: TAKE 1 TABLET BY MOUTH THREE TIMES DAILY NEEDED nitroglycerin 0.4 mg tablet, sublingual 0.4 mg sublingual Q5M Label Comments: PLACE 1 TABLET UNDER THE TONGUE EVERY 5 MINUTES FOR 3 DOSES. CALL 911 IF SYMPTOMS PERSIST paroxetine HCl 40 mg tablet 40 mg PO HS Label Comments: TAKE 1 and 1/2 TABLET BY MOUTH EVERY DAY desvenlafaxine succinate 25 mg tablet extended release 24 hr 25 mg PO Q24H Label Comments: TAKE 1 TABLET BY MOUTH EVERY DAY ondansetron 4 mg tablet,disintegrating 4 mg PO Q6H PRN trazodone 100 mg tablet 100 mg PO HS albuterol sulfate 90 mcg/actuation HFA aerosol inhaler 1 - 2 puff INHALATION Q6H PRN Label Comments: INHALE 1 TO 2 PUFFS INTO THE LUNGS EVERY 6 HOURS NEEDED FOR SHORTNESS OF BREATH OR DIFFICULT BREATHING OR WHEEZING atorvastatin 10 mg tablet 10 mg PO HS dextroamphetamine-amphetamine [Adderall XR] 20 mg capsule,extended release 24hr 20 mg PO DAILY Label Comments: TAKE ONE CAPSULE BY MOUTH EVERY MORNING hydrocortisone 2.5 % cream with perineal applicator 1 applic MD Q12H PRN Label Comments: APPLY RECTALLY TO THE AFFECTED AREA TWICE DAILY NEEDED OR DIRECTED FOR HEMORRHOIDS lactulose 10 gram/15 mL solution 10 g PO DAILY PRN Label Comments: TAKE 15 TO 30 ML BY MOUTH DAILY. MAY INCREASE TO 2 TIMES DAILY NEEDED hydromorphone [Dilaudid] 2 mg tablet 2 mg PO Q4H Label Comments: take 1/2 to 1 tab as need every 4 hours Hemorrhoidal (phenyleph-fat) 0.25-88.7 % suppository 1 supp MD TID Label Comments: UNWRAP AND INSERT ONE SUPPOSITORY RECTALLY THREE TIMES A DAY Gummies Girls' Multivitamins Tablet,Chewable 2 tab PO DAILY acetaminophen [Acetaminophen Extra Strength] 500 mg tablet 1,000 mg PO TID PRN lidocaine 4 % adhesive patch,medicated 1 patch topical DAILY Label Comments: Apply 1-3 patches on dry, clean, hairless skin every 24 hours. Apply to intact skin to cover most painful area for max 12 hours per 24hr period. Neck, shoulder, and lower back. Rx Instructions: may leave on for up to 12 hrs amlodipine 2.5 mg tablet 2.5 mg PO DAILY Follow Up/Referrals: Provider,Not a Local [Primary Care Provider] - Stand Alone Forms: MyHealth Info Instructions
== END 2021-12-04 19:35 | disposition left against medical advice (07) ==
PROVIDERS: Emergency Provider Emergency Medicine
DX: R10.9 Unspecified abdominal pain (principal); Z53.29 Procedure and treatment not carried out because of patient's decision for other reasons
CPT/HCPCS: 99283

== ENCOUNTER 2022-10-26 13:07 | Emergency (ER) | payer OTHER, MEDICAID, SELFPAY ==
[2022-10-26 13:22] VITALS: BP 124/84; PULSE 70; RESP 14; TEMP 36.4; O2SAT 99; BMI 16.1
--- NOTE | 2022-10-26 13:41 | CRLHL7_ITS ---
For Patients: As a result of the Century Cures Act, medical imaging exams and procedure reports are released immediately into your electronic medical record. You may view this report before your referring provider. If you have questions, please contact your health care provider. Indication: NECK PAIN WITH RADICULOPATHY Technique: Noncontrast axial CT of the cervical spine with coronal and sagittal reformats are provided. Comparison: CT 10/19/2019 Findings: There is straightening of normal cervical lordosis. No fracture. No prevertebral or paraspinal edema. No aggressive osseous lesions. The craniocervical junction is unremarkable. Degenerative changes at the anterior atlantoaxial articulation. Mild interspace narrowing at C3-4. Moderate interspace narrowing at C4-5 with slight retrolisthesis. C1-2: No spinal canal stenosis C2-3: No significant spinal canal stenosis or neural foramen narrowing. C3-4: Uncovertebral joint hypertrophy with results in moderate bilateral neural foramen stenosis. Shallow disc osteophyte complex. No spinal canal stenosis. C4-5: Severe disc space narrowing, slight retrolisthesis. Disc osteophyte complex results in moderate spinal canal stenosis. Severe neural foramina narrowing bilaterally due to uncovertebral joint hypertrophy. C5-6: Moderate facet arthrosis. No significant spinal canal stenosis or neural foramen narrowing. C6-7: Mild disc bulge. No significant spinal canal stenosis or neural foramen narrowing. C7-T1: No significant spinal canal stenosis or neural foramen narrowing. Impression: 1. No convincing radiographic evidence of acute osseous injury. 2. At C3-4, moderate bilateral neural foramen stenosis. 3. At C4-5, moderate spinal canal stenosis and severe bilateral neural foramen narrowing. Please note that all CT scans at this facility use dose modulation, iterative reconstruction, and/or weight-based dosing when appropriate to reduce radiation dose to as low as reasonably achievable. Dictated by Manuel Santos MD @ 10/26/2022 3:36:24 PM (Electronically Signed)
[2022-10-26] MEDS: ONDANSETRON ODT 4 MG TAB PO ×2 (13:48→14:51)
--- NOTE | 2022-10-26 15:00 | ED_ITS ---
HPI - Neck Pain/Injury General Chief Complaint: Neck Injury/Pain Stated Complaint: Back/ L arm/neck pain, diarrhea Time Seen by Provider: 10/26/22 13:34 History of Present Illness HPI Narrative: Patient is a 57-year-old woman who comes in acutely with left-sided neck pain. She states that the pain extends from the base of her head to the superior aspect of her left shoulder. She has had no recent injuries. 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 She also tells me that she has end-stage fibromuscular disease and has chronic C difficile colitis. Patient states that she is out of her Dilaudid at home as her primary physician stopped prescribing. Patient has had no bowel or bladder symptoms that have changed no fevers no chills no night sweats no numbness no tingling no weakness. Pain is moderate and described above. She really does not bring up any abdominal pain or diarrhea. Patient has been seen many times in the emergency room. Related Data Home Medications Medication Instructions Recorded Confirmed apixaban 5 mg tablet (Eliquis) 5 mg PO BID 09/08/21 10/26/22 clonazepam 2 mg tablet 2 mg PO TID PRN 09/08/21 10/26/22 desvenlafaxine succinate 25 mg 25 mg PO Q24H 09/08/21 10/26/22 tablet,extended release 24 hr nitroglycerin 0.4 mg sublingual 0.4 mg sublingual Q5M 09/08/21 10/26/22 tablet omeprazole 40 mg capsule,delayed 40 mg PO DAILY 09/08/21 10/26/22 release paroxetine HCl 40 mg tablet 40 mg PO HS 09/08/21 10/26/22 acetaminophen 500 mg tablet 1,000 mg PO TID PRN 11/13/21 10/26/22 (Acetaminophen Extra Strength) albuterol sulfate 90 mcg/actuation 1 - 2 puff inhalation Q6H PRN 11/13/21 10/26/22 aerosol inhaler amlodipine 2.5 mg tablet 2.5 mg PO DAILY 11/13/21 10/26/22 atorvastatin 10 mg tablet 10 mg PO HS 11/13/21 10/26/22 dextroamphetamine-amphetamine ER 20 mg PO DAILY 11/13/21 10/26/22 20 mg 24hr capsule,extend release (Adderall XR) hydrocortisone 2.5 % topical cream 1 applic DE Q12H PRN 11/13/21 10/26/22 with perineal applicator hydromorphone 2 mg tablet 2 mg PO Q4H 11/13/21 10/26/22 (Dilaudid) lidocaine 4 % topical patch 1 patch topical DAILY 11/13/21 10/26/22 ondansetron 4 mg disintegrating 4 mg PO Q6H PRN 11/13/21 10/26/22 tablet pediatric multivitamin no.29 2 tab PO DAILY 11/13/21 10/26/22 (Gummies [employer]' Multivitamins chewable tablet) trazodone 100 mg tablet 100 mg PO HS 11/13/21 10/26/22 Allergies Allergy/AdvReac Type Severity Reaction Status Date / Time isosorbide Allergy Severe Throat Verified 11/13/21 04:36 swelling/closng gadobutrol Allergy Intermediate Wheezing Verified 11/13/21 04:36 ibuprofen Allergy Intermediate Dizziness Verified 11/13/21 04:36 Iodinated Contrast Media Allergy Intermediate Rash Verified 11/13/21 04:36 iodixanol Allergy Intermediate Wheezing Verified 11/13/21 04:36 metrizamide Allergy Intermediate Hallucinati Verified 11/13/21 04:36 ng promethazine Allergy Intermediate Hallucinati Verified 11/13/21 04:36 ng meclizine Allergy Mild Headache Verified 11/13/21 04:36 morphine AdvReac Intermediate Nausea/Vomi Verified 11/13/21 04:36 ting methocarbamol [From Robaxin] AdvReac Mild Nausea Verified 11/13/21 04:36 metoclopramide [From Reglan] AdvReac Verified 11/13/21 04:36 prochlorperazine AdvReac Verified 11/13/21 04:36 [From Compazine] Peppermint Oil Allergy Severe Shortness Uncoded 11/13/21 04:36 of Breath Review of Systems Status of ROS: Reports: 10 or more systems reviewed and unremarkable except as noted in History and below [facility] Medical History 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 - Dissection of other specified artery (ICD-10) 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 - Dissection of other specified artery (ICD-10) Iliac aneurysm ?I72.3 - Aneurysm of iliac artery (ICD-10) History of coronary angiogram ?Z98.890 - Other specified postprocedural states (ICD-10) Secondary hypertension ?I15.9 - Secondary hypertension, unspecified (ICD-10) Belia-Goetz tear ?K22.6 - Gastro-esophageal laceration-hemorrhage syndrome (ICD-10) 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 difficile colitis ?A04.72 - Enterocolitis due to Clostridium difficile, not specified as recurrent (ICD-10) Cervical spondylosis ?M47.812 - Spondylosis without myelopathy or radiculopathy, cervical region (ICD-10) Osteoarthritis of lumbar spine ?M47.816 - Spondylosis without myelopathy or radiculopathy, lumbar region (ICD-10) Degeneration of lumbar or lumbosacral intervertebral disc ?M51.37 - Other intervertebral disc degeneration, lumbosacral region (ICD-10) Vitamin D deficiency ?E55.9 - Vitamin D deficiency, unspecified (ICD-10) Vasomotor instability ?R55 - Syncope and collapse (ICD-10) TIA (transient ischemic attack) ?G45.9 - Transient cerebral ischemic attack, unspecified (ICD-10) Chronic pain disorder ?G89.4 - Chronic pain syndrome (ICD-10) Lumbar radiculopathy ?M54.16 - Radiculopathy, lumbar region (ICD-10) Paroxysmal atrial fibrillation ?I48.0 - Paroxysmal atrial fibrillation (ICD-10) Thyroid nodule ?E04.1 - Nontoxic single thyroid nodule (ICD-10) Pancreas cyst ?K86.2 - Cyst of pancreas (ICD-10) Fibromyalgia ?M79.7 - Fibromyalgia (ICD-10) Cerebral arterial aneurysm ?I67.1 - Cerebral aneurysm, nonruptured (ICD-10) Panic attack ?F41.0 - Panic disorder [episodic paroxysmal anxiety] (ICD-10) Tear of meniscus of left knee ?S83.207A - Unspecified tear of unspecified meniscus, current injury, left knee, initial encounter (ICD-10) Opiate dependence ?F11.20 - Opioid dependence, uncomplicated (ICD-10) Precordial pain ?R07.2 - Precordial pain (ICD-10) Stroke with cerebral ischemia ?I63.9 - Cerebral infarction, unspecified (ICD-10) Controlled substance agreement signed ?Z79.899 - Other alf (current) drug therapy (ICD-10) Migraine ?G43.909 - Migraine, unspecified, not intractable, without status migrainosus (ICD-10) Legal blindness ?H54.8 - Legal blindness, as defined in [place] (ICD-10) History of CVA (cerebrovascular accident) ?Z86.73 - Personal history of transient ischemic attack (TIA), and cerebral infarction without residual deficits (ICD-10) Vision changes ?H53.9 - Unspecified visual disturbance (ICD-10) Alcohol use ?Z72.89 - Other problems related to lifestyle (ICD-10) Altered mental status ?R41.82 - Altered mental status, unspecified (ICD-10) Syncope ?R55 - Syncope and collapse (ICD-10) COVID-19 ?U07.1 - COVID-19 (ICD-10) Pancreatic cyst ?K86.2 - Cyst of pancreas (ICD-10) Anxiety ?F41.9 - Anxiety disorder, unspecified (ICD-10) Constipation ?K59.00 - Constipation, unspecified (ICD-10) Colitis ?K52.9 - Noninfective gastroenteritis and colitis, unspecified (ICD-10) Chronic abdominal pain ?R10.9 - Unspecified abdominal pain (ICD-10) ?G89.29 - Other chronic pain (ICD-10) Hyperlipidemia ?E78.5 - Hyperlipidemia, unspecified (ICD-10) Hypertension ?I10 - Essential (primary) hypertension (ICD-10) GERD (gastroesophageal reflux disease) ?K21.9 - Gastro-esophageal reflux disease without esophagitis (ICD-10) Cancer ?C80.1 - Malignant (primary) neoplasm, unspecified (ICD-10) CVA (cerebral vascular accident) ?I63.9 - Cerebral infarction, unspecified (ICD-10) Surgical History History of ERCP ?Z98.890 - Other specified postprocedural states (ICD-10) History of removal of ovarian cyst ?Z98.890 - Other specified postprocedural states (ICD-10) ?Z87.42 - Personal history of other diseases of the female genital tract (ICD-10) History of laparoscopic cholecystectomy ?Z90.49 - Acquired absence of other specified parts of digestive tract (ICD- 10) History of arthroscopy of left knee ?Z98.890 - Other specified postprocedural states (ICD-10) History of cholecystectomy ?Z90.49 - Acquired absence of other specified parts of digestive tract (ICD- 10) Social History Smoking Status: Former smoker Do you use any of these nicotine containing products: None Second hand tobacco smoke exposure: No How often do you have a drink containing alcohol: never How often do you have six or more drinks on one occasion: Never AUDIT-C Alcohol total score: 0 Non-prescribed substance use: marijuana (any form) service: No Exam Narrative: Exam Narrative: EXAM GENERAL: Patient appears comfortable and well. EYES: No scleral icterus. THYROID: no thyroid nodules or thyromegaly. LYMPH: No supraclavicular or cervical lymphadenopathy. SKIN: Visible skin seen during exam normal or with benign process only. EXT: No dependent lower extremity pedal edema. HEART: Regular rate and rhythm with no murmurs, rubs, or gallops. LUNGS: Clear to auscultation bilaterally with no crackles or wheezes. ABD: Soft, non tender, non distended. PSYCH: Good eye contact, speech is not pressured. Neurologic cranial nerves 2-12 grossly intact no focal defects. Muscular exam is normal. Const: Vital Signs, click to edit/add: Vital Signs - 24 hr 10/26/22 13:22 Temperature 97.6 F Pulse Rate [Right Pulse Oximeter] 70 Respiratory Rate 14 Blood Pressure [Ri ght Upper Arm] 124/84 Pulse Oximetry 99 Oxygen Delivery Me thod Room Air Course Course Hospital Course: Patient seen examined. I did order a CT of her cervical spine. Do not believe she has an acute dissection but will certainly look for any pathology. Patient states that she has not eaten for several months and is interested in having lab work today as well. We did request a CBC and basic metabolic panel. Vital Signs Vital signs: Initial Vital Signs Temperature 97.6 F 10/26/22 13:22 Temperature Source Temporal Artery Scan 10/26/22 13:22 Pulse Rate 70 10/26/22 13:22 Respiratory Rate 14 10/26/22 13:22 Blood Pressure 124/84 10/26/22 13:22 Blood Pressure Mean 97 10/26/22 13:22 Blood Pressure Position Sitting 10/26/22 13:22 Pulse Oximetry 99 10/26/22 13:22 Oxygen Delivery Method Room Air 10/26/22 13:22 Vital Signs Temperature 97.6 F 10/26/22 13:22 Pulse Rate 70 10/26/22 13:22 Respiratory Rate 14 10/26/22 13:22 Blood Pressure 124/84 10/26/22 13:22 Pulse Oximetry 99 10/26/22 13:22 Oxygen Delivery Method Room Air 10/26/22 13:22 Temperature 97.6 F 10/26/22 13:22 Pulse Rate 70 10/26/22 13:22 Respiratory Rate 14 10/26/22 13:22 Blood Pressure 124/84 10/26/22 13:22 Pulse Oximetry 99 10/26/22 13:22 Oxygen Delivery Method Room Air 10/26/22 13:22 MDM - Neck Pain/Injury MDM Narrative Medical decision making narrative: Patient is a 57-year-old woman who presents stating that she has terminal fibro muscular disease and is blind tells me that she feels like she is having a vertebral dissection. She has had at least 8 of these according to her history. She has had no neurologic symptoms but has severe left-sided neck pain. I did do a CT scan which showed foraminal stenosis at C3-C4 as well as canal stenosis with foraminal narrowing at C4-C5. I do not see evidence of a vertebral dissection. When she is informed of this she states that she would like IV Dilaudid she her Dilaudid that she is taking at home as run out and she is out of medication. Patient also states that she has not eaten for 2 months although her labs are stable. She also tells me that she is blind although seems to track me throughout the room. We did have a nice discussion about her findings. We both agreed that she should follow up with primary physician. I did recommend that she follow up in the [facility] her [place] office as she lives in [place]. She does take some complex medications. Differential Diagnosis Differential diagnosis: Likely disc disorder of cervical region, whiplash injury to neck, closed subluxation of cervical spine, fracture of cervical spine without lesion of spinal cord, cervical radiculopathy, vertebral artery dissection, torticollis, cervical spondylosis and strain of neck muscle Lab Data Labs: Lab Results 10/26/22 Range/Units 15:16 WBC 4.57 (4.50-11.00) K/uL RBC 4.08 (4.00-5.20) m/uL Hgb 11.9 L (12.0-16.0) gm/dL Hct 36.2 (33.0-51.0) % MCV 89 (80-100) fL MCH 29 (26-34) pg MCHC 33 (32-36) gm/dL RDW Coeff of Mathew 14.3 (11.5-15.5) % Plt Count 179 (140-440) K/uL Neut % (Auto) 68.3 (42.0-72.0) % Lymph % (Auto) 21.4 (20-44) % [place] % (Auto) 8.1 (0.0-11.0) % Eos % (Auto) 0.4 (0.0-7.0) % Baso % (Auto) 0.7 (0.0-3.0) % Neut # (Auto) 3.12 (1.7-7.0) K/uL Lymph # (Auto) 0.98 (0.90-2.90) K/uL [place] # (Auto) 0.40 (0.00-0.90) K/UL Eos # (Auto) 0.02 (0.00-0.50) K/uL Baso # (Auto) 0.03 (0.00-0.30) K/uL Abs Immat Gran (auto) 0.05 (0.00-0.30) K/uL Imm/Tot Granulo (auto) 1.1 % Sodium 137 (135-149) mmol/L Potassium 3.7 (3.6-5.1) mmol/L Chloride 107 (96-114) mmol/L Carbon Dioxide 27 (20-32) mmol/L Anion Gap 3 L (7-15) mEq/L BUN 10 (7-30) mg/dL Creatinine 0.7 (0.5-1.5) mg/dL Estimated Creat Clear 61.96 Estimated GFR 100 ml/min Glucose 97 (60-115) mg/dL Calcium 8.9 (8.4-10.6) mg/dL Discharge Plan Discharge Clinical Impression: Cervical radiculopathy Patient Disposition: Home, Self-Care Condition: Stable Instructions: Cervical Radiculopathy (ED) Additional Instructions: Continue current management Follow-up with primary care. Activity Level: No Restrictions Discharge Diet: Regular Prescriptions: No Action Eliquis 5 mg tablet 5 mg PO BID omeprazole 40 mg capsule,delayed release(DR/EC) 40 mg PO DAILY clonazepam 2 mg tablet 2 mg PO TID PRN Patient Comments: TAKE 1 TABLET BY MOUTH THREE TIMES DAILY NEEDED nitroglycerin 0.4 mg tablet, sublingual 0.4 mg sublingual Q5M Patient Comments: PLACE 1 TABLET UNDER THE TONGUE EVERY 5 MINUTES FOR 3 DOSES. CALL 911 IF SYMPTOMS PERSIST paroxetine HCl 40 mg tablet 40 mg PO HS Patient Comments: TAKE 1 and 1/2 TABLET BY MOUTH EVERY DAY desvenlafaxine succinate 25 mg tablet extended release 24 hr 25 mg PO Q24H Patient Comments: TAKE 1 TABLET BY MOUTH EVERY DAY ondansetron 4 mg tablet,disintegrating 4 mg PO Q6H PRN trazodone 100 mg tablet 100 mg PO HS albuterol sulfate 90 mcg/actuation HFA aerosol inhaler 1 - 2 puff INHALATION Q6H PRN Patient Comments: INHALE 1 TO 2 PUFFS INTO THE LUNGS EVERY 6 HOURS NEEDED FOR SHORTNESS OF BREATH OR DIFFICULT BREATHING OR WHEEZING atorvastatin 10 mg tablet 10 mg PO HS dextroamphetamine-amphetamine [Adderall XR] 20 mg capsule,extended release 24hr 20 mg PO DAILY Patient Comments: TAKE ONE CAPSULE BY MOUTH EVERY MORNING hydrocortisone 2.5 % cream with perineal applicator 1 applic DE Q12H PRN Patient Comments: APPLY RECTALLY TO THE AFFECTED AREA TWICE DAILY NEEDED OR DIRECTED FOR HEMORRHOIDS hydromorphone [Dilaudid] 2 mg tablet 2 mg PO Q4H Patient Comments: take 1/2 to 1 tab as need every 4 hours Gumm[employer] Multivitamins Tablet,Chewable 2 tab PO DAILY acetaminophen [Acetaminophen Extra Strength] 500 mg tablet 1,000 mg PO TID PRN lidocaine 4 % adhesive patch,medicated 1 patch topical DAILY Patient Comments: Apply 1-3 patches on dry, clean, hairless skin every 24 hours. Apply to intact skin to cover most painful area for max 12 hours per 24hr period. Neck, shoulder, and lower back. Rx Instructions: may leave on for up to 12 hrs amlodipine 2.5 mg tablet 2.5 mg PO DAILY Follow Up/Referrals: Provider,Not a Local [Primary Care Provider] - Stand Alone Forms: [employer] Info Instructions
[2022-10-26 15:22] LABS: Basophils Absolute Auto 0.03 K/uL (0.00-0.30); Basophils Percent Auto 0.7 % (0.0-3.0); Eosinophils Absolute Auto 0.02 K/uL (0.00-0.50); Eosinophils Percent Auto 0.4 % (0.0-7.0); Hematocrit 36.2 % (33.0-51.0); Hemoglobin* 11.9 gm/dL (12.0-16.0); Immature Granulocytes Abs Auto 0.05 K/uL (0.00-0.30); Immature Granulocytes Pct Auto 1.1 %; Lymphocytes Absolute Auto 0.98 K/uL (0.90-2.90); Lymphocytes Percent Auto 21.4 % (20-44); Mean Corpuscular HGB Conc 33 gm/dL (32-36); Mean Corpuscular Hemoglobin 29 pg (26-34); Mean Corpuscular Volume 89 fL (80-100); Monocytes Percent Auto 8.1 % (0.0-11.0); Neutrophils Absolute Auto 3.12 K/uL (1.7-7.0); Neutrophils Percent Auto 68.3 % (42.0-72.0); Platelet Count* 179 K/uL (140-440); RDW Coefficient of Variation % 14.3 % (11.5-15.5); Red Blood Count 4.08 m/uL (4.00-5.20); White Blood Count* 4.57 K/uL (4.50-11.00)
[2022-10-26 15:27] LABS: Slide Review Reflex No
[2022-10-26 15:34] LABS: Chloride* 107 mmol/L (96-114)
[2022-10-26 15:35] LABS: Potassium* 3.7 mmol/L (3.6-5.1); Sodium* 137 mmol/L (135-149)
[2022-10-26 15:37] LABS: Creatinine* 0.7 mg/dL (0.5-1.5); Est. Creatinine Clearance* 61.96; Estimated Glomerular Filt Rate 100 ml/min
[2022-10-26 15:38] LABS: Anion Gap 3 mEq/L (7-15); Blood Urea Nitrogen* 10 mg/dL (7-30); Calcium* 8.9 mg/dL (8.4-10.6); Carbon Dioxide* 27 mmol/L (20-32); Glucose* 97 mg/dL (60-115)
[2022-10-26 15:55] VITALS: BP 126/88; PULSE 78
== END 2022-10-26 15:57 | disposition home or self-care (01) ==
PROVIDERS: Emergency Provider Internal Medicine
DX: M54.12 Radiculopathy, cervical region (principal)
CPT/HCPCS: 36415; 72125; 80048; 85025; 99283; 99284; A9270